=== PATIENT | male | born 1980 | race Caucasian/White ===

== ENCOUNTER 2017-02-04 14:26 | Inpatient (IN) | payer OTHER ==
[~2017-02-04] VITALS: Ht 188 cm; Wt 87.6 kg
[2017-02-04 14:36] VITALS: BP 132/80
[2017-02-04] MEDS ORDERED: CIPROFLOXACIN500 M4 PO (14:41)
[2017-02-04] MEDS ORDERED: QUETIAPINE FUM100 M3 PO (14:41)
[2017-02-04] MEDS ORDERED: COGENTIN0.5 MG PO (14:42)
[2017-02-04 15:00] LABS: BASO % 0.5 % (0.0-1.0); EOS # 0.4 10*3/uL (0.0-0.4); EOS % 4.3 % (1.0-4.0); HEMATOCRIT 42.3 % (42.0-52.0); HEMOGLOBIN 14.6 g/dl (14.0-18.0); LYMPH # 2.7 10*3/uL (1.3-4.4); MEAN CELL VOLUME 94.6 fl (80.0-94.0); MEAN CORPUSCULAR HGB 32.7 pg (27.0-31.0); MEAN CORPUSCULAR HGB CONC 34.5 g/dl (33.0-37.0); MEAN PLATELET VOLUME 10.2 fl (9.6-12.3); MONO # 0.9 10*3/uL (0.1-1.0); MONO % 10.1 % (3.0-9.0); NEUT # 4.4 10*3/uL (2.3-7.9); NEUT % 52.6 % (47.0-73.0); PLATELET COUNT AUTOMATED 292 10*3/uL (130-400); RED BLOOD COUNT 4.47 10*6/uL (4.50-5.90); WHITE BLOOD COUNT 8.4 10*3/uL (4.8-10.8)
[2017-02-04 15:16] LABS: ALBUMIN 3.5 gm/dl (3.1-4.5); ALKALINE PHOSPHATASE 81 U/L (45-117); BILIRUBIN, TOTAL 0.3 mg/dl (0.2-1.0); BUN 9 mg/dl (7-24); CARBON DIOXIDE 29 mmol/L (21-32); CHLORIDE 102 mmol/L (98-107); EST GLOM FILT AFRICAN AMERICAN > 60 ml/min; GLUCOSE 119 mg/dL (65-99); POTASSIUM 4.1 mmol/L (3.5-5.1); SGOT/AST 31 IU/L (3-35); SGPT/ALT 36 U/L (12-78); SODIUM 140 mmol/L (136-145); TOTAL PROTEIN 7.6 gm/dL (6.4-8.2)
[2017-02-04 15:24] LABS: THYROID STIM HORMONE (HS) 0.638 uIU/ml (0.358-4.75)
[2017-02-04 15:55] LABS: BILIRUBIN NEGATIVE (NEGATIVE); BLOOD NEGATIVE (NEGATIVE); CLARITY SL CLOUDY (CLEAR); COLOR YELLOW (YELLOW); GLUCOSE NEGATIVE (NEGATIVE); KETONE NEGATIVE (NEGATIVE); LEUKO ESTERASE NEGATIVE (NEGATIVE); NITRITE NEGATIVE (NEGATIVE); PROTEIN NEGATIVE (NEGATIVE); SPECIFIC GRAVITY <= 1.005 (1.005-1.030); UROBILINOGEN 0.2 E.U./dl (0.2-1.0)
[2017-02-04 16:02] LABS: URINE AMPHETAMINES < 1000 (1000ng/ml); URINE BARBITURATES < 200 (200ng/ml); URINE COCAINE < 300 (300ng/ml)
[2017-02-04 16:04] LABS: BACTERIA 1+; EPITHELIAL CELLS 0-2; URINE REFLEX COMMENT NO (NO)
[2017-02-04 16:30] VITALS: BP 136/72
[2017-02-04 20:50] VITALS: BP 144/77
[2017-02-05] VITALS: BP 104/43
[2017-02-05 08:00] VITALS: BP 116/58
[2017-02-05 12:00] VITALS: BP 158/83
[2017-02-05 16:00] VITALS: BP 148/76
[2017-02-05 20:00] VITALS: BP 136/60
[2017-02-06] VITALS: BP 126/60
[2017-02-06 08:00] VITALS: BP 106/62
[2017-02-06 12:00] VITALS: BP 109/66
[2017-02-06 16:00] VITALS: BP 140/76
[2017-02-06 20:00] VITALS: BP 137/71
[2017-02-07 08:00] VITALS: BP 116/60
[2017-02-07] MEDS ORDERED: CARBIDOPA/LEVOD1 TA1 PO (11:26)
[2017-02-07] MEDS ORDERED: ZOFRAN 4 MG ED2 TAB PO (11:26)
[2017-02-07] MEDS ORDERED: ATARAX,VISTARIL50 MG PO (11:26)
== END 2017-02-07 15:00 | disposition home or self-care (01) | DRG 897 ==
LOC: ED 14:26 → 5E 14:45 → EDHOLD 14:45 → 5E 15:34
PROVIDERS: Hospitalist; Nurse Practitioner Family
DX: F11.23 Opioid dependence with withdrawal (principal); F20.9 Schizophrenia, unspecified; N39.0 Urinary tract infection, site not specified; F31.9 Bipolar disorder, unspecified; F17.200 Nicotine dependence, unspecified, uncomplicated; K62.3 Rectal prolapse; G25.81 Restless legs syndrome; F41.9 Anxiety disorder, unspecified; Z80.9 Family history of malignant neoplasm, unspecified; Z79.2 Long term (current) use of antibiotics; Z79.899 Other long term (current) drug therapy

== ENCOUNTER 2017-04-23 15:20 | Inpatient (IN) | payer OTHER ==
[~2017-04-23] VITALS: Ht 187.9 cm; Wt 86.3 kg
[~2017-04-23 15:20] MED LIST: ATARAX,VISTARIL50 MG PO; CARBIDOPA/LEVOD1 TA1 PO; CIPROFLOXACIN500 M4 PO; COGENTIN0.5 MG PO; QUETIAPINE FUM100 M3 PO; ZOFRAN 4 MG ED2 TAB PO
[2017-04-23 16:15] VITALS: BP 133/57
[2017-04-23 16:52] LABS: BILIRUBIN NEGATIVE (NEGATIVE); BLOOD NEGATIVE (NEGATIVE); CLARITY SL CLOUDY (CLEAR); COLOR YELLOW (YELLOW); GLUCOSE NEGATIVE (NEGATIVE); KETONE NEGATIVE (NEGATIVE); LEUKO ESTERASE NEGATIVE (NEGATIVE); NITRITE NEGATIVE (NEGATIVE); PROTEIN NEGATIVE (NEGATIVE); SPECIFIC GRAVITY 1.025 (1.005-1.030); UROBILINOGEN 0.2 E.U./dl (0.2-1.0)
[2017-04-23 17:03] LABS: BASO % 0.5 % (0.0-1.0); EOS # 0.2 10*3/uL (0.0-0.4); EOS % 4.3 % (1.0-4.0); HEMATOCRIT 38.7 % (42.0-52.0); HEMOGLOBIN 12.6 g/dl (14.0-18.0); LYMPH # 1.9 10*3/uL (1.3-4.4); LYMPH % 33.3 % (27.0-41.0); MEAN CELL VOLUME 93.7 fl (80.0-94.0); MEAN CORPUSCULAR HGB 30.5 pg (27.0-31.0); MEAN CORPUSCULAR HGB CONC 32.6 g/dl (33.0-37.0); MEAN PLATELET VOLUME 9.7 fl (9.6-12.3); MONO # 0.7 10*3/uL (0.1-1.0); MONO % 12.7 % (3.0-9.0); NEUT # 2.7 10*3/uL (2.3-7.9); PLATELET COUNT AUTOMATED 198 10*3/uL (130-400); RED BLOOD COUNT 4.13 10*6/uL (4.50-5.90); RED CELL DISTRI WIDTH 13.6 % (0-14.5); WHITE BLOOD COUNT 5.6 10*3/uL (4.8-10.8)
[2017-04-23 17:04] LABS: URINE AMPHETAMINES < 1000 (1000ng/ml); URINE BARBITURATES < 200 (200ng/ml); URINE COCAINE > 300 (300ng/ml)
[2017-04-23 17:07] LABS: BACTERIA TRACE; MUCOUS TRACE
[2017-04-23 17:08] LABS: URINE REFLEX COMMENT NO (NO); WBC 0-2 wbc/hpf (0-5)
[2017-04-23 17:10] LABS: PROTHROMBIN TIME 10.3 SECONDS (9.0-12.4)
[2017-04-23 17:23] LABS: ALBUMIN 3.2 gm/dl (3.1-4.5); ALKALINE PHOSPHATASE 62 U/L (45-117); BILIRUBIN, TOTAL 0.3 mg/dl (0.2-1.0); BUN 12 mg/dl (7-24); CARBON DIOXIDE 29 mmol/L (21-32); CHLORIDE 105 mmol/L (98-107); EST GLOM FILT AFRICAN AMERICAN > 60 ml/min; GLUCOSE 85 mg/dL (65-99); POTASSIUM 4.3 mmol/L (3.5-5.1); SGOT/AST 27 IU/L (3-35); SGPT/ALT 31 U/L (12-78); SODIUM 141 mmol/L (136-145); TOTAL PROTEIN 6.9 gm/dL (6.4-8.2)
[2017-04-23 20:00] VITALS: BP 119/63
[2017-04-24] VITALS: BP 110/55
[2017-04-24 04:00] VITALS: BP 109/60
[2017-04-24 08:00] VITALS: BP 96/42
[2017-04-24 12:00] VITALS: BP 125/76
[2017-04-24 16:00] VITALS: BP 119/79
[2017-04-24 20:24] VITALS: BP 106/42
[2017-04-25] VITALS: BP 125/56
[2017-04-25 04:00] VITALS: BP 125/60
[2017-04-25 06:09] VITALS: BP 125/56
[2017-04-25 06:12] VITALS: BP 125/56
[2017-04-25 08:00] VITALS: BP 90/42
[2017-04-25 16:00] VITALS: BP 124/60
== END 2017-04-25 16:15 | disposition left against medical advice (07) | DRG 894 ==
LOC: 4E 15:20
PROVIDERS: Internal Medicine; Obstetrics & Gynecology
DX: F11.23 Opioid dependence with withdrawal (principal); F20.9 Schizophrenia, unspecified; D64.9 Anemia, unspecified; F41.9 Anxiety disorder, unspecified; F31.9 Bipolar disorder, unspecified; G25.81 Restless legs syndrome; F14.90 Cocaine use, unspecified, uncomplicated; F17.210 Nicotine dependence, cigarettes, uncomplicated; Z53.21 Procedure and treatment not carried out due to patient leaving prior to being seen by health care provider; Z80.9 Family history of malignant neoplasm, unspecified; Z71.6 Tobacco abuse counseling